=== PATIENT | female | born 1965 | race Caucasian/White ===

== ENCOUNTER 2023-10-27 04:07 | Day surgery (SDC) | payer OTHER, SELFPAY ==
[2023-10-18 12:13] VITALS: BMI 26.5
--- NOTE | 2023-10-18 12:17 | PC.NURSE ---
Report to the Outpatient Waiting Room, entrance under the green pavilion located off [facility], at time 1000 on date 10/27/23. Planned Procedure Time: 1200. Time changes happen often and if your time is changed the preop area will call you the afternoon before. - You and your visitor will be asked to self-screen and do not enter if you have any COVID symptoms. - A mask is optional within the hospital at this time. Patients may have clear liquids (water, carbonated beverages, clear teas, apple juice) until 3 hours prior to surgery with a maximum of 20 ounces. - No food from midnight until time of surgery Take the following medications with a SIP of water the morning of surgery: NONE DO NOT STOP ANY OF YOUR OTHER PRESCRIPTION MEDICATIONS PRIOR TO SURGERY ?EXCEPT THE FOLLOWING Medications to discontinue per physician: N/A Date to take last dose: N/A Please no make-up, nail turkish, hairspray, perfume, deodorant, or body powder the day of surgery. No jewelry (including any body piercings) or valuables the day of surgery, leave them at home. Please take a shower or bath the night before, or the morning of, surgery with an antibacterial soap. Wear comfortable, loose fitting clothing. - Jewelry must be removed prior to entering the operating room. Rings and piercings that are not removed may be cut off. - The hospital will not accept responsibility for valuables. - Please leave all valuables, including medications, at home the day of surgery. If you are going home after surgery, a licensed patient transportation driver must drive you home. - NO public transportation without another adult if you receive anesthesia. - We recommend that an adult stay with you for 24 hours following discharge. - We also recommend that you do not drive, make important decision, drink alcoholic beverages, or take any drugs that were not prescribed by your health care provider for at least 24 hours after your discharge time. Follow any additional instructions given to you from your surgeon. If you or anyone in your household have experienced Covid symptoms in the past week, please notify your surgeon or the nurse liaison at the phone number below for possible testing. Telephone instructions given to PT - ANTHONY OSEGUERA and asked if any additional questions and then verbalized understanding. Patient advised to call surgeon office or pre surgery nurse liaison [phone] if any additional questions.
[2023-10-27] VITALS (7 sets, daily range): BP systolic 102–126; BP diastolic 59–83; PULSE 79–91; RESP 12–16; TEMP 36.4–36.8; O2SAT 100
[2023-10-27] MEDS: LACTATED RINGERS 1,000 ML 30 ML IV CONT ×2 (10:30→13:31)
--- NOTE | 2023-10-27 11:00 | WPDANESEPPF ---
Anes - Initial Pre Proc Eval Procedure: Operation Date: 10/27/23 12:00 Proposed Procedures p Removal Bilateral Breast Implants, - Gilberto Damian MD s Bilateral Breast Mastopexy - Gilberto Damian MD Date/Time: 10/27/23 11:00 Surgeon: Gilberto Damian MD Pre Op Diagnosis: hx breast aug, breast ptosis Patient Data Age: 58 Gender: F Height: 1.6 m Weight: 70 kg Last Vital Signs Temp 36.8 C 10/27/23 10:31 Pulse 81 10/27/23 10:31 Resp 16 10/27/23 10:31 BP 126/79 10/27/23 10:31 Pulse Ox 100 10/27/23 10:31 O2 Del Method Room Air 10/27/23 10:31 Allergies Allergy/AdvReac Type Severity Reaction Status Date / Time No Known Allergies Allergy Unknown Verified 10/27/23 10:12 Home Medications Medication Instructions Recorded Confirmed Type fexofenadine 180 mg tablet 180 mg PO DAILY 10/18/23 10/27/23 History Laboratory Tests 10/27/23 10:10 Cotinine Pending Patient hx anesthesia problems: post op nausea/vomiting Family hx anesthesia problems: none Results Review: All pre-operative results and documents have been reviewed as part of the pre-operative evaluation. [facility] Social History Social History Smoking status: Never smoker Alcohol intake: current Drinks per week: 2 Substance use: never Substance use type: does not use Living arrangements: alone Spiritual care concerns: No Anes - Eval Final PreProcedure Day of Procedure 10/27/23 11:00 Patient weight: overweight Heart: regular rate and rhythm Lungs: clear to auscultation Airway: Mallampati scale class II Neurological: alert and oriented Last oral intake: >/= 8 hours ASA classification: II Emergent: no Anesthetic plan: proceed Anesthesia type and monitoring: general LMA and standard monitoring Results Review: All pre-operative results and documents have been reviewed as part of the pre-operative evaluation. Informed Consent: The patient's anesthetic plan and its attendant risks and benefits were discussed with the patient/family/POA. Questions were solicited and answers provided to the satisfaction of the patient/family/POA.
[2023-10-27] MEDS: SCOPOLAMINE 1 MG PATCH 1 PATCH TRANSDERM (11:04)
--- NOTE | 2023-10-27 11:04 | WPDHPUPDATE1 ---
History and Physical Update Update Date/Time: 10/27/23 11:04 History and Physical has been reviewed, including an updated exam of the patient. There are NO changes in the patient's condition. Proceed with bilateral implant removal, mastopexy, Galaflex. Risks, benefits, and alternatives have been discussed and questions answered. Patient agrees to proceed with procedure.
--- NOTE | 2023-10-27 11:05 | W.PM.PROC2 ---
Procedure Note - Detailed Date of Procedure 10/27/23 Pre-op Diagnosis hx breast aug, breast ptosis Post-op Diagnosis Same Procedure Performed Bilateral implant removal Bilateral mastopexy Bilateral galaflex Surgeon Gilberto Damian MD Anesthesia General Findings Previous implants: Saline smooth submuscular 350cc Inverted T Superior medial pedicle Galaflex: Lot# [id number] Description of Procedure She is here today for the above. Previously and again today the risks, benefits, alternatives were discussed in extensive detail. I wanted her to be very realistic about the risks involved as well as expectations. We discussed aftercare and what to monitor for. Made sure answered all of her questions to her satisfaction today and consent was obtained. Marked in the preoperative holding area with their verification. The patient was taken to the operating room placed supine on the operating table. Anesthesia was provided by anesthesiology. A surgical time-out was taken. She was prepped and draped in a standard sterile fashion. 1% lidocaine and 0.25% Marcaine was used to provide a field block. The breast was tailor tacked into place. I tailor tacked the breast into position. Placed her in a sitting position. Verified the nipple-areolar location based on preoperative planning as well as intraoperative observations and measurements in full agreement. She was placed supine. I de-epithelialized the pedicle. I then de-epithelialized the inferior breast tissue to create an autoaugmentation flap based on intercostal certified adapted physical educator. I elevated medial and lateral tissue flaps as well for planned closure. The implant was identified and removed. Copiously irrigated with saline solution on TUR tubing. Verified strict hemostasis. The autoaugmentation flap was trimmed for volume reduction / symmetry (50 grams more taken from the left) and sutured to the chest wall with 2-0 PDS. Galaflex was soaking on the back table in a Betadine solution. Trimmed and sutured into place with 2-0 Vicryl. I closed along the IMF with 2-0 Stratafix. Along the vertical with 2-0 PDS. I closed around the Thomas with 3-0 strata fix. 3-0 Monocryl along the vertical. 3-0 Stratafix along the IMF. I finally closed everything with running subcuticular 4-0 Monocryl and tissue glue. Fluffs and surgical bra were placed. Estimated Blood Loss 75 Drains No Packing No Pathology None sent Complications No immediate complications Condition Stable Disposition PACU
[2023-10-27 11:11] LABS: Urine Cotinine NEGATIVE
[2023-10-27] MEDS: ceFAZolin 2 GM/D5W 50 ML 2 GM/50 ML BAG IVPB (11:15)
[2023-10-27] MEDS: TRANEXAMIC ACID 1,000MG/ISO100 1,000 MG/100 ML BAG 200 MG IVPB (11:20)
[2023-10-27] MEDS: LIDO 1%/EPINEPHRINE 1:100,000 50 ML VIAL 30 ML INFILTRATE (11:39)
[2023-10-27] MEDS: BUPivacaine HCL 0.25% PF 30 ML VIAL INFILTRATE (11:40)
[2023-10-27] MEDS: NACL 0.9% IRRIG POUR BOTTLE 900 ML, GENTAMICIN SULFATE INJ 160 MG, ceFAZolin 2 GM, POVI... IRRIGATION (12:53)
== END 2023-10-27 15:07 | disposition home or self-care (01) ==
PROVIDERS: Visit Provider Surgery Plastic and Reconstructive Surgery
PROC: 0HPT0JZ Removal of Synthetic Substitute from Right Breast, Open Approach (ICD-10-PCS; CPT 19316; principal; 2023-10-27 12:00)
PROC: (CPT 19316; 2023-10-27 12:00)
DX: Z41.1 Encounter for cosmetic surgery (principal); N64.81 Ptosis of breast
CPT/HCPCS: 19316; 15777 ×2; 80307; A9270; J0171; J0690; J1100; J1170; J1200; J1580; J2250; J2405; J2704; J3010; J7120